=== PATIENT | male | born 1965 | race African-American/Black ===

== ENCOUNTER 2020-12-24 20:09 | Day surgery (SDCO) | payer OTHER ==
[~2020-12-24 20:09] MED LIST: ACETAMINOPHEN650 M2 PO; BACLOFEN 10MG T10 MG PO; DICLO GEL1 EACH TOP; MOBIC15 MG PO; TRAMADOL HCL E200 MG PO
[2020-12-24 20:46] LABS: BASOPHIL 0.2 % (0-2); EOSINOPHIL 2.5 % (0-5); HCT 40.5 % (42.0-52.0); HGB 14.1 g/dl (13.2-18.0); LYMPHOCYTE 32.2 % (15-48); MCH 32.3 pg (25.0-31.0); MCHC 34.8 g/dL (32.0-36.0); MCV 92.9 fL (78.0-100.0); MONOCYTE 10.6 % (0-12); MPV 10.7 fL (6.0-9.5); NEUTROPHIL 54.2 % (41-80); NRBC 0; PLT 194 K/uL (150-400); RBC 4.36 M/uL (4.70-6.00); RDW 14.2 % (11.5-14.0); WBC 5.9 K/uL (4.0-10.5)
[2020-12-24 20:56] LABS: INR 0.98 (0.9-1.2); PROTHROMBIN TIME 12.3 SECONDS (11.4-13.6); PTT 26.8 SECONDS (22.2-34.7)
[2020-12-24 21:13] LABS: ALBUMIN 3.6 g/dL (3.4-5.0); BILIRUBIN - TOTAL 0.2 mg/dL (0.2-1.0); BUN/CREAT RATIO (CALC) 22.6 RATIO; CREATININE 0.84 mg/dL (0.67-1.17); FT4 (FREE T4) 1.1 ng/dL (0.76-1.46); GLOBULIN (CALCULATION) 3.3 g/dL; TOTAL PROTEIN 6.9 g/dL (6.4-8.2)
[2020-12-24 21:18] LABS: BILIRUBIN NEGATIVE (NEGATIVE); BLOOD NEGATIVE Ery/uL (NEGATIVE); CLARITY CLEAR (CLEAR); COLOR YELLOW (YELLOW); GLUCOSE (U) NORMAL (NORMAL); LEUKOCYTES NEGATIVE Leu/uL (NEGATIVE); NITRITE NEGATIVE (NEGATIVE); PROTEIN NEGATIVE (NEGATIVE); UROBILINOGEN 0.2 mg/dL (0.2-1.0); pH 5.5 (5.0-9.0)
[2020-12-24 21:18] LABS: AMPHETAMINES NEGATIVE (NEGATIVE); BARBITURATES NEGATIVE (NEGATIVE); ECSTASY (MDMA) NEGATIVE (NEGATIVE); MARIJUANA (THC) NEGATIVE (NEGATIVE); METHADONE NEGATIVE (NEGATIVE); OPIATES NEGATIVE (NEGATIVE); OXYCODONE NEGATIVE (NEGATIVE)
[2020-12-24 23:41] LABS: CORONAVIRUS 2019 SARS-COV-2 NEGATIVE (NEGATIVE); INFLUENZA A NAA NEGATIVE (NEGATIVE)
[2020-12-25] MEDS ORDERED: GABAPENTIN600 MG PO (00:25)
[2020-12-25 06:00] LABS: BASOPHIL 0.2 % (0-2); EOSINOPHIL 3.2 % (0-5); HCT 39.4 % (42.0-52.0); HGB 13.3 g/dl (13.2-18.0); LYMPHOCYTE 43.8 % (15-48); MCH 32.4 pg (25.0-31.0); MCHC 33.8 g/dL (32.0-36.0); MCV 95.9 fL (78.0-100.0); MONOCYTE 10.5 % (0-12); MPV 11.2 fL (6.0-9.5); NEUTROPHIL 42.1 % (41-80); NRBC 0; PLT 174 K/uL (150-400); RBC 4.11 M/uL (4.70-6.00); RDW 14.8 % (11.5-14.0); WBC 6.3 K/uL (4.0-10.5)
[2020-12-25 06:16] LABS: ALBUMIN 2.9 g/dL (3.4-5.0); BILIRUBIN - TOTAL 0.2 mg/dL (0.2-1.0); BUN/CREAT RATIO (CALC) 16.5 RATIO; CREATININE 0.97 mg/dL (0.67-1.17); GLOBULIN (CALCULATION) 2.8 g/dL; POTASSIUM 4.6 mmol/L (3.5-5.1); TOTAL PROTEIN 5.7 g/dL (6.4-8.2)
--- NOTE | 2020-12-25 09:55 | NUR ---
MET WITH PT AND SPOUSE. PT. IS INDEPENDENT, HE DOES NOT REQUIRE ANY DME. PT. STATES THAT HE HAS A GOOD SUPPORT SYSTEM. HE IS AWAITING TEST RESULTS AT THIS TIME. PLEASE ADVISE OF ANY D/C NEEDS.
--- NOTE | 2020-12-25 14:11 | NUR ---
ATTEMPTED MULTIPLE TIMES TO UPDATE HOME MEDICATION LIST BY CALLING [facility]. NO ANSWER EACH TIME
[2020-12-25] MEDS ORDERED: ABILIFY5 MG PO (17:22)
[2020-12-25] MEDS ORDERED: CELEBREX **OUT100 MG PO (17:22)
[2020-12-25] MEDS ORDERED: CYMBALTA 30MG C30 MG PO (17:23)
[2020-12-25] MEDS ORDERED: PROSCAR5 MG PO (17:23)
[2020-12-25] MEDS ORDERED: FLOMAX0.4 MG PO (17:24)
[2020-12-26 04:35] LABS: HCT 36.9 % (42.0-52.0); HGB 12.4 g/dl (13.2-18.0); MCH 32.3 pg (25.0-31.0); MCHC 33.6 g/dL (32.0-36.0); MCV 96.1 fL (78.0-100.0); MPV 10.9 fL (6.0-9.5); RBC 3.84 M/uL (4.70-6.00); RDW 15.4 % (11.5-14.0); WBC 6.4 K/uL (4.0-10.5)
[2020-12-26 04:57] LABS: BUN/CREAT RATIO (CALC) 13.1 RATIO; CREATININE 0.84 mg/dL (0.67-1.17); POTASSIUM 4.6 mmol/L (3.5-5.1)
[2020-12-26] MEDS ORDERED: HABITROL14 MG TD (11:33)
--- NOTE | 2020-12-26 13:22 | NUR ---
1230 PT DISCHARGE ORDERS DISCUSSED WITH PT. PT VERBALIZED UNDERSTANDING. PT AMBULATED TO PERSONAL CAR. IV DC'D
== END 2020-12-26 12:37 | disposition home or self-care (01) ==
LOC: FER 20:09 → FMS 22:48
PROVIDERS: Emergency Medicine Emergency Medical Services; Hospitalist; Nurse Practitioner; ADMIT Internal Medicine
DX: R55 Syncope and collapse (principal); G89.4 Chronic pain syndrome; E86.0 Dehydration; M62.82 Rhabdomyolysis; R42 Dizziness and giddiness; H53.2 Diplopia; F17.210 Nicotine dependence, cigarettes, uncomplicated; M19.90 Unspecified osteoarthritis, unspecified site; G62.9 Polyneuropathy, unspecified; R53.1 Weakness; Z79.899 Other long term (current) drug therapy; Z20.822 Contact with and (suspected) exposure to COVID-19
CPT/HCPCS: 36415; 70450; 70544; 70548; 70551; 71045; 73502; 80048; 80053; 80305; 81003; 82550; 84439; 84443; 84481; 84484; 85025; 85610; 85730; 93005; 97161; 97165; 97530; 97530-GP; A9579; G0378; J1885; J7030; U0002